=== PATIENT | male | born 1975 | race American Indian/Alaskan Native ===

== ENCOUNTER 2017-04-26 10:04 | Emergency (ER) | payer OTHER ==
[2017-04-26] MEDS ORDERED: ASPIRIN PO ONE (10:24)
[2017-04-26 10:42] LABS: Eosinophils # (Auto) 0.1 K/mm3 (0.0-0.4); Hematocrit 49.9 % (35.5-45.6); Hemoglobin 16.6 gm/dl (11.8-15.2); Lymphocytes % (Auto) 46.9 % (13.4-35.0); Mean Corpuscular HGB Conc 33 % (32-34); Mean Corpuscular Hemoglobin 30 pg (28-32); Mean Corpuscular Volume 89 fl (84-94); Monocytes # (Auto) 0.3 K/mm3 (0.0-0.8); Monocytes % (Auto) 8.1 % (0.0-7.3); Platelet Count 162 K/mm3 (140-440); Red Blood Count 5.62 M/mm3 (3.65-5.03); Red Cell Distribution Width 13.5 % (13.2-15.2)
[2017-04-26 10:59] LABS: BUN/Creatinine Ratio 9; Blood Urea Nitrogen 8 mg/dL (9-20); Calcium 9.2 mg/dL (8.4-10.2); Hemolysis Index 14
--- NOTE | 2017-04-26 14:59 | Emergency Department Report ---
ED Chest Pain HPI - General Chief Complaint: Chest Pain Stated Complaint: CP/FLOR Time Seen by Provider: 04/26/17 14:36 Source: patient Mode of arrival: Ambulatory Limitations: No Limitations - History of Present Illness Initial Comments: Patient has been having episodes of Chest pain for almost two years. He also suspects that he has reflux disease and that his condition may causing this problem. He has been getting these symptoms after he eats or when he eats and lays down. MD Complaint: chest pain -: Gradual Onset: during exertion Pain Location: substernal, epigastric Pain Radiation: abdomen Severity: mild Severity scale (0 -10): 4 Quality: aching, pressure Consistency: intermittent Improves With: nothing Worsens With: eating re: denies: nausea, vomting, diaphoresis, dyspnea Other Symptoms: acid taste in mouth. denies: cough, fever, palpitations Treatments Prior to Arrival: none - Related Data Previous Rx's Medication Instructions Recorded Last Taken Type Pantoprazole [Protonix] 40 mg PO QDAY 14 Days tablet 04/26/17 Unknown Rx Allergies Allergy/AdvReac Type Severity Reaction Status Date / Time No Known Allergies Allergy Unverified 04/26/17 10:20 Heart Score - HEART Score History: Slightly suspicious EKG: Normal Age: < 45 Risk factors: No known risk factors Troponin: < normal limit HEART Score: 0 ED Review of Systems ROS: Stated complaint: CP/FLOR Other details as noted in HPI Constitutional: denies: chills, fever Eyes: denies: eye pain, eye discharge, vision change ENT: denies: ear pain, throat pain Respiratory: denies: cough, shortness of breath, wheezing Cardiovascular: denies: chest pain, palpitations Endocrine: no symptoms reported Gastrointestinal: denies: abdominal pain, nausea, diarrhea Genitourinary: denies: urgency, dysuria Musculoskeletal: denies: back pain, joint swelling, arthralgia Skin: denies: rash, lesions Neurological: denies: headache, weakness, paresthesias Psychiatric: denies: anxiety, depression Hematological/Lymphatic: denies: easy bleeding, easy bruising ED Past Medical Hx - Past Medical History Previous Medical History?: Yes Additional medical history: "highly stressed" - Surgical History Past Surgical History?: No - Social History Smoking Status: Former Smoker Substance Use Type: Alcohol - Medications Home Medications: Home Medications Medication Instructions Recorded Confirmed Last Taken Type Pantoprazole [Protonix] 40 mg PO QDAY 14 Days tablet 04/26/17 Unknown Rx ED Physical Exam - General Limitations: No Limitations General appearance: alert, in no apparent distress - Head Head exam: Present: atraumatic, normocephalic - Eye Eye exam: Present: normal appearance - ENT ENT exam: Present: mucous membranes moist - Neck Neck exam: Present: normal inspection - Respiratory Respiratory exam: Present: normal lung sounds bilaterally. Absent: respiratory distress - Cardiovascular Cardiovascular Exam: Present: regular rate, normal rhythm, normal heart sounds. Absent: systolic murmur, diastolic murmur, rubs, gallop, JVD - GI/Abdominal GI/Abdominal exam: Present: soft, normal bowel sounds. Absent: distended, tenderness, guarding, rebound, rigid - Rectal Rectal exam: Present: deferred - Extremities Exam Extremities exam: Present: normal inspection - Back Exam Back exam: Present: normal inspection - Neurological Exam Neurological exam: Present: alert, oriented X3 - Psychiatric Psychiatric exam: Present: normal affect, normal mood - Skin Skin exam: Present: warm, dry, intact, normal color. Absent: rash ED Course Vital Signs 04/26/17 10:20 Temperature 98.8 F Pulse Rate 65 Respiratory 20 Rate Blood Pressure 122/80 O2 Sat by Pulse 100 Oximetry - Reevaluation(s) Reevaluation #1: 04/26/17 15:57 Patient has not experienced any more discomfort. He feels fine and is ready to be discharged home. ED Medical Decision Making - Lab Data Result diagrams: 04/26/17 10:26 04/26/17 10:26 - EKG Data -: EKG Interpreted by Me EKG shows normal: sinus rhythm Rate: bradycardia - EKG Data When compared to previous EKG there are: previous EKG unavailable Interpretation: no acute changes, other (Bradycardia) - Radiology Data Radiology results: image reviewed interpreted by me: No acute process - Medical Decision Making Patient diagnose discussed. Discussed prescribing him Protonix to take for reflux disease. He is accepting of this. He has been instructed to follow up with his PCP in 2-3 days. Critical care attestation.: If time is entered above; I have spent that time in minutes in the direct care of this critically ill patient, excluding procedure time. ED Disposition Clinical Impression: Chest pain due to GERD Disposition: DC-01 TO HOME OR SELFCARE Is pt being admited?: No Does the pt Need Aspirin: No Condition: Stable Instructions: Chest Pain (ED) Referrals: PRIMARY CARE, [Primary Care Provider] - 3-5 Days
--- NOTE | 2017-04-26 16:22 | XRay Report ---
FINAL REPORT EXAM: XR CHEST 1V AP HISTORY: Chest Pain TECHNIQUE: Portable upright frontal chest x-ray was performed Comparison: None FINDINGS: Lung volumes are low. Heart size is normal. Lungs are clear and well expanded without focal infiltrate or consolidation. There is no pneumothorax. No effusion is identified. Imaged axial skeleton is unremarkable. IMPRESSION: Low volume exam. No acute cardiopulmonary disease.
[2017-04-26 16:45] VITALS: BP 125/78
== END 2017-04-26 16:46 | disposition home or self-care (01) ==
LOC: ED 10:04
DX: K21.9 Gastro-esophageal reflux disease without esophagitis (principal); Z87.891 Personal history of nicotine dependence
CPT/HCPCS: 36415; 71045; 80048; 84484; 85025; 93005; 93010; 99284